=== PATIENT | female | born 1965 | race Caucasian/White ===

== ENCOUNTER 2019-01-04 15:57 | Emergency (ER) | payer SELFPAY ==
[~2019-01-04] VITALS: Ht 142.2 cm; Wt 65.8 kg
[~2019-01-04 15:57] MED LIST: CHOL200018 PO; CLON0.5T3 PO; DULO30CA PO; HYDR1TAB66 PO; LVT.05T PO; MILN50TA6 PO; MULT-1029 PO; PREG25CA PO; PRM25T PO; TOPI25TA2 PO; ZOLP10TA5 PO
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
--- OUTSIDE RECORDS SUMMARY | 2019-01-04 16:02 | XMS REPORT ---
Author Author Migration, Doctor Organization [facility] Address Unknown Phone Unavailable Care Team Providers Care Gas Dispenser Name Role Phone Migration, Doctor Unavailable Unavailable PROBLEMS Type Condition ICD9-CM Code TKK51-NC Code Onset Dates Condition Status SNOMED Code Problem Elevated ALT measurement R74.0 Active 495625290 Problem Mixed hyperlipidemia E78.2 Active 573538667 ALLERGIES No Information ENCOUNTERS Encounter Location Date Diagnosis [facility] [address] [address] Aug, Dysuria R30.0 and Urinary tract infection without hematuria, site unspecified N39.0 [place] [address] [address] Jul, Gastroenteritis K52.9 [facility] [address] [address] May, Acute pansinusitis, recurrence not specified J01.40 [facility] [place] [address] [address] Jan, Dysuria R30.0 and Acute cystitis without hematuria N30.00 [place] [address] [address] Aug, Mixed hyperlipidemia E78.2 and Elevated ALT measurement R74.0 [facility] [address] [address] Jul, Moderate episode of recurrent major depressive disorder F33.1 ; Screening cholesterol level Z13.220 ; Screening for diabetes mellitus Z13.1 ; Fibromyalgia syndrome M79.7 and Chronic fatigue R53.82 [facility] [address] [address] Jul, Moderate episode of recurrent major depressive disorder F33.1 ; Screening cholesterol level Z13.220 ; Screening for diabetes mellitus Z13.1 ; Overweight (BMI 25.0-29.9) E66.3 ; Fibromyalgia syndrome M79.7 ; Chronic fatigue R53.82 ; Other viral agents as the cause of diseases classified elsewhere B97.89 and Acute upper respiratory infection, unspecified J06.9 [place] [address] [place] [address] Jul, Panic disorder F41.0 ; Moderate episode of recurrent major depressive disorder F33.1 and Generalized anxiety disorder F41.1 [facility] [address] [place] [id number] [place] [address] Jul, Panic disorder F41.0 ; Moderate episode of recurrent major depressive disorder F33.1 ; Generalized anxiety disorder F41.1 ; Dysthymia F34.1 and Anxiety F41.9 [place] [id number] [place] [address] Jun, Panic disorder F41.0 ; Moderate episode of recurrent major depressive disorder F33.1 and Generalized anxiety disorder F41.1 [place] [address] [place] [id number] [place] [address] Jun, Anxiety F41.9 ; Acute stress reaction F43.0 ; Panic disorder [episodic paroxysmal anxiety] F41.[address] [facility] [address] [place] [address] Jun, Acute non-recurrent pansinusitis J01.40 [place] [address] [place] [id number] [place] [address] Nov, [place] [address] [place] [id number] [place] [address] Nov, [place] [address] [place] [id number] [place] [address] Jan, [place] [address] [place] [id number] [place] [address] December, [facility] [place] [facility] [address] [id number] [place] [address] 06 Nov, 2011 [facility] [place] [facility] [address] [id number] [place] [address] 05 Nov, 2011 [facility] [place] [facility] [address] [id number] [place] [address] Nov, [facility] [place] [facility] [address] [id number] [place] [address] 04 Nov, 2011 [facility] [place] [facility] [address] [id number] [place] [address] Nov, [facility] [place] [facility] [address] [id number] [place] [address] 31 Oct, 2011 [facility] [place] [facility] [address] [id number] [place] [address] 29 Oct, 2011 [facility] [place] [facility] [address] [id number] [place] [address] 28 Oct, 2011 [facility] [place] [facility] [address] [id number] [place] [address] 27 Oct, 2011 [facility] [place] [facility] [address] [id number] [place] [address] 26 Oct, 2011 [facility] [place] [facility] [address] [id number] [place] [address] 26 Oct, 2011 [facility] [place] [facility] [address] [id number] [place] [address] 22 Oct, 2011 [facility] [place] [facility] [address] [id number] [place] [address] 21 Oct, 2011 [facility] [place] [facility] [address] [id number] [place] [address] 19 Oct, 2011 [facility] [place] [facility] [address] [id number] [place] [address] 14 Oct, 2011 [facility] [place] [facility] [address] [id number] [place] [address] Oct, [facility] [place] [facility] [address] [id number] [place] [address] Oct, [facility] [place] [facility] [address] [id number] [place] [address] 29 Sep, 2011 [facility] [place] [facility] [address] [id number] [place] [address] Aug, [facility] [place] [facility] [address] [id number] [place] [address] 16 Aug, 2011 [facility] [place] [facility] [address] [id number] [place] [address] Aug, [facility] [place] [facility] [address] [id number] [place] [address] Aug, [facility] [place] [facility] [address] [id number] [place] [address] Jul, [facility] [place] [facility] [address] [id number] [place] [address] 16 Jul, 2011 [facility] [place] [facility] [address] [id number] [place] [address] 15 Jul, 2011 [facility] [place] [facility] [address] [id number] [place] [address] 13 Jul, 2011 [facility] [place] [facility] [address] [id number] [place] [address] 12 Jul, 2011 [facility] [place] [facility] [address] [id number] [address] 28 Jun, 2011 [facility] [place] [facility] [address] [id number] [place] [address] 28 Jun, 2011 [facility] [place] [facility] [address] [id number] [place] [address] 17 Jun, 2011 [facility] [place] [facility] [address] [id number] [place] [address] 14 Jun, 2011 [facility] [place] [facility] [address], [place] [address] Jun, [facility] [address], [place] [address] Mar, [facility] [address], [place] [address] Jan, [facility] [address], [place] [address] Sep, [facility] [address] [place] [address] Jul, [facility] [address] [place] [address] Jun, [facility] [address] [place] [address] May, [facility] [address] [place] [address] Sep, [facility] [address], [place] [address] Jun, [facility] [address] [place] [address] May, [facility] [address], [place] [address] May, [facility] [address], [place] [address] Feb, [facility] [address], [place] [address] Jan, [facility] [address], [place] [address] Oct, IMMUNIZATIONS No Known Immunizations SOCIAL HISTORY Never Assessed REASON FOR VISIT EMR-[facility] [place] PLAN OF CARE VITAL SIGNS MEDICATIONS No [...]
--- OUTSIDE RECORDS SUMMARY | 2019-01-04 16:02 | XMS REPORT ---
Author Author Migration, Doctor Organization [facility] Address Unknown Phone Unavailable Care Team Providers Care Hydrological Technical Officer Name Role Phone Migration, Doctor Unavailable Unavailable PROBLEMS Type Condition ICD9-CM Code JMS63-VM Code Onset Dates Condition Status SNOMED Code Problem Elevated ALT measurement R74.0 Active 068811931 Problem Mixed hyperlipidemia E78.2 Active 296444073 ALLERGIES No Information ENCOUNTERS Encounter Location Date Diagnosis [facility] IN [facility] [address] [address] Aug, Dysuria R30.0 and Urinary tract infection without hematuria, site unspecified N39.0 [place] [address] [address] Jul, Gastroenteritis K52.9 [facility] [address] [address] May, Acute pansinusitis, recurrence not specified J01.40 [facility] [place] [address] [address] Jan, Dysuria R30.0 and Acute cystitis without hematuria N30.00 [place] [address] [address] Aug, Mixed hyperlipidemia E78.2 and Elevated ALT measurement R74.0 [facility] [address] [address] Jul, Moderate episode of recurrent major depressive disorder F33.1 ; Screening cholesterol level Z13.220 ; Screening for diabetes mellitus Z13.1 ; Fibromyalgia syndrome M79.7 and Chronic fatigue R53.82 [facility] [address] [address] Jul, Moderate episode of recurrent major depressive disorder F33.1 ; Screening cholesterol level Z13.220 ; Screening for diabetes mellitus Z13.1 ; Overweight (BMI 25.0-29.9) E66.3 ; Fibromyalgia syndrome M79.7 ; Chronic fatigue R53.82 ; Other viral agents as the cause of diseases classified elsewhere B97.89 and Acute upper respiratory infection, unspecified J06.9 [place] [address] [place] [address] Jul, Panic disorder F41.0 ; Moderate episode of recurrent major depressive disorder F33.1 and Generalized anxiety disorder F41.1 [facility] [address] [place] [id number] [place] [address] Jul, Panic disorder F41.0 ; Moderate episode of recurrent major depressive disorder F33.1 ; Generalized anxiety disorder F41.1 ; Dysthymia F34.1 and Anxiety F41.9 [place] [id number] [place] [address] Jun, Panic disorder F41.0 ; Moderate episode of recurrent major depressive disorder F33.1 and Generalized anxiety disorder F41.1 [place] [address] [place] [id number] [place] [address] Jun, Anxiety F41.9 ; Acute stress reaction F43.0 ; Panic disorder [episodic paroxysmal anxiety] F41.0 and Dysthymia F34.1 [facility] [address] [place] [address] Jun, Acute non-recurrent pansinusitis J01.40 [place] [address] [place] [id number] [place] [address] Nov, [place] [address] [place] [id number] [place] [address] Nov, [place] [address] [place] [id number] [place] [address] Jan, [place] [address] [place] [id number] [place] [address] December, [facility] [place] [facility] [address] [id number] [place] [address] 06 Nov, 2011 [facility] [place] [facility] [address] [id number] [place] [address] 05 Nov, 2011 [facility] [place] [facility] [address] [id number] [place] [address] Nov, [facility] [place] [facility] [address] [id number] [place] [address] 04 Nov, 2011 [facility] [place] [facility] [address] [id number] [place] [address] Nov, [facility] [place] [facility] [address] [id number] [place] [address] 31 Oct, 2011 [facility] [place] [facility] [address] [id number] [place] [address] 29 Oct, 2011 [facility] [place] [facility] [address] [id number] [place] [address] 28 Oct, 2011 [facility] [place] [facility] [address] [id number] [place] [address] 27 Oct, 2011 [facility] [place] [facility] [address] [id number] [place] [address] 26 Oct, 2011 [facility] [place] [facility] [address] [id number] [place] [address] 26 Oct, 2011 [facility] [place] [facility] [address] [id number] [place] [address] 22 Oct, 2011 [facility] [place] [facility] [address] [id number] [place] [address] 21 Oct, 2011 [facility] [place] [facility] [address] [id number] [place] [address] 19 Oct, 2011 [facility] [place] [facility] [address] [id number] [place] [address] 14 Oct, 2011 [facility] [place] [facility] [address] [id number] [place] [address] Oct, [facility] [place] [facility] [address] [id number] [place] [address] Oct, [facility] [place] [facility] [address] [id number] [place] [address] 29 Sep, 2011 [facility] [place] [facility] [address] [id number] [place] [address] Aug, [facility] [place] [facility] [address] [id number] [place] [address] 16 Aug, 2011 [facility] [place] [facility] [address] [id number] [place] [address] Aug, [facility] [place] [facility] [address] [id number] [place] [address] Aug, [facility] [place] [facility] [address] [id number] [place] [address] Jul, [facility] [place] [facility] [address] [id number] [place] [address] 16 Jul, 2011 [facility] [place] [facility] [address] [id number] [place] [address] 15 Jul, 2011 [facility] [place] [facility] [address] [id number] [place] [address] 13 Jul, 2011 [facility] [place] [facility] [address] [id number] [place] [address] 12 Jul, 2011 [facility] [place] [facility] [address] [id number] [address] 28 Jun, 2011 [facility] [place] [facility] [address] [id number] [place] [address] 28 Jun, 2011 [facility] [place] [facility] [address] [id number] [place] [address] 17 Jun, 2011 [facility] [place] [facility] [address] [id number] [place] [address] 14 Jun, 2011 [facility] [place] [facility] [id number] [address] Jun, [facility] [id number] [address] Mar, [facility] [id number] [address] Jan, [facility] [id number] [address] Sep, [facility] [id number] [place] [address] Jul, [facility] [id number] [place] [address] Jun, [facility] [id number] [place] [address] May, [facility] [id number] [place] [address] Sep, [facility] [id number] [address] Jun, [facility] [id number] [place] [address] May, [facility] [id number] [address] May, [facility] [id number] [address] Feb, [facility] [id number] [address] Jan, [facility] [id number] [address] Oct, IMMUNIZATIONS No Known Immunizations SOCIAL HISTORY Never Assessed REASON FOR VISIT EMR-[facility] PLAN OF CARE VITAL SIGNS MEDICATIONS No [...]
--- OUTSIDE RECORDS SUMMARY | 2019-01-04 16:02 | XMS REPORT ---
Author Author Migration, Doctor Organization [facility] Address Unknown Phone Unavailable Care Team Providers Care Wafer Fab Technician Name Role Phone Migration, Doctor Unavailable Unavailable PROBLEMS Type Condition ICD9-CM Code IVD86-BA Code Onset Dates Condition Status SNOMED Code Problem Elevated ALT measurement R74.0 Active 097446065 Problem Mixed hyperlipidemia E78.2 Active [id number] ALLERGIES No Information ENCOUNTERS Encounter Location Date Diagnosis [facility] WALK IN [facility] [address] [address] Aug, Dysuria R30.0 and Urinary tract infection without hematuria, site unspecified N39.0 [place] [address] [address] Jul, Gastroenteritis K52.9 [facility] WALK IN [facility] [address] [address] 30 May, 2018 Acute pansinusitis, recurrence not specified J01.40 [facility] WALK IN [place] [address] [address] Jan, Dysuria R30.0 and Acute cystitis without hematuria N30.00 [place] [address] [address] Aug, Mixed hyperlipidemia E78.2 and Elevated ALT measurement R74.0 [facility] [address] [address] Jul, Moderate episode of recurrent major depressive disorder F33.1 ; Screening cholesterol level Z13.220 ; Screening for diabetes mellitus Z13.1 ; Fibromyalgia syndrome M79.7 and Chronic fatigue R53.82 [facility] [address] [address] Jul, Moderate episode of recurrent major depressive disorder F33.1 ; Screening cholesterol level Z13.220 ; Screening for diabetes mellitus Z13.1 ; Overweight (BMI 25.0-29.9) E66.3 ; Fibromyalgia syndrome M79.7 ; Chronic fatigue R53.82 ; Other viral agents as the cause of diseases classified elsewhere B97.89 and Acute upper respiratory infection, unspecified J06.9 [place] [id number] [place] [address] Jul, Panic disorder F41.0 ; Moderate episode of recurrent major depressive disorder F33.1 and Generalized anxiety disorder F41.1 [facility] [address] [place] [id number] [place] [address] Jul, Panic disorder F41.0 ; Moderate episode of recurrent major depressive disorder F33.1 ; Generalized anxiety disorder F41.1 ; Dysthymia F34.1 and Anxiety F41.9 [place] [id number] [place] [address] Jun, Panic disorder F41.0 ; Moderate episode of recurrent major depressive disorder F33.1 and Generalized anxiety disorder F41.1 [place] [address] [address] [place] [id number] [place] [address] Jun, Anxiety F41.9 ; Acute stress reaction F43.0 ; Panic disorder [episodic paroxysmal anxiety] F41.0 and Dysthymia F34.1 [facility] [address] [place] [address] Jun, Acute non-recurrent pansinusitis J01.40 [place] [address] [address] [place] [id number] [place] [address] Nov, [place] [address] [address] [place] [id number] [place] [address] Nov, [place] [address] [address] [place] [id number] [place] [address] Jan, [place] [address] [address] [place] [id number] [place] [address] December, [facility] [place] [facility] [address] [id number] [place] [address] 06 Nov, 2011 [facility] [place] [facility] [address] [id number] [place] [address] 05 Nov, 2011 [facility] [place] [facility] [address] [id number] [place] [address] Nov, [facility] [place] [facility] [address] [id number] [place] [address] 04 Nov, 2011 [facility] [place] [facility] [address] [id number] [place] [address] Nov, [facility] [place] [facility] [address] [id number] [place] [address] 31 Oct, 2011 [facility] [place] [facility] [address] [id number] [place] [address] 29 Oct, 2011 [facility] [place] [facility] [address] [id number] [place] [address] 28 Oct, 2011 [facility] [place] [facility] [address] [id number] [place] [address] 27 Oct, 2011 [facility] [place] [facility] [address] [id number] [place] [address] 26 Oct, 2011 [facility] [place] [facility] [address] [id number] [place] [address] 26 Oct, 2011 [facility] [place] [facility] [address] [id number] [place] [address] 22 Oct, 2011 [facility] [place] [facility] [address] [id number] [place] [address] 21 Oct, 2011 [facility] [place] [facility] [address] [id number] [place] [address] 19 Oct, 2011 [facility] [place] [facility] [address] [id number] [place] [address] 14 Oct, 2011 [facility] [place] [facility] [address] [id number] [place] [address] Oct, [facility] [place] [facility] [address] [id number] [place] [address] Oct, [facility] [place] [facility] [address] [id number] [place] [address] 29 Sep, 2011 [facility] [place] [facility] [address] [id number] [place] [address] Aug, [facility] [place] [facility] [address] [id number] [place] [address] 16 Aug, 2011 [facility] [place] [facility] [address] [id number] [place] [address] Aug, [facility] [place] [facility] [address] [id number] [place] [address] Aug, [facility] [place] [facility] [address] [id number] [place] [address] Jul, [facility] [place] [facility] [address] [id number] [place] [address] 16 Jul, 2011 [facility] [place] [facility] [address] [id number] [place] [address] 15 Jul, 2011 [facility] [place] [facility] [address] [id number] [place] [address] 13 Jul, 2011 [facility] [place] [facility] [address] [id number] [place] [address] 12 Jul, 2011 [facility] [place] [facility] [address] [id number] [address] 28 Jun, 2011 [facility] [place] [facility] [address] [id number] [place] [address] 28 Jun, 2011 [facility] [place] [facility] [address] [id number] [place] [address] 17 Jun, 2011 [facility] [place] [facility] [address] [id number] [place] [address] 14 Jun, 2011 [facility] [place] [facility] [address] [address] Jun, [facility] [address] [address] Mar, [facility] [address] [address] Jan, [facility] [address] [address] Sep, [facility] [id number] [place] [address] Jul, [facility] [id number] [place] [address] Jun, [facility] [id number] [place] [address] May, [facility] [id number] [place] [address] Sep, [facility] [address] [address] Jun, [facility] [id number] [place] [address] May, [facility] [address] [address] May, [facility] [address] [address] Feb, [facility] [address] [address] Jan, [facility] [address] [address] Oct, IMMUNIZATIONS No Known Immunizations SOCIAL HISTORY Never Assessed REASON FOR V[place]IT [place] [place] VITAL SIGNS MEDICATIONS No [...]
--- OUTSIDE RECORDS SUMMARY | 2019-01-04 16:02 | XMS REPORT ---
Author Author Migration, Doctor Organization [facility] Address Unknown Phone Unavailable Care Team Providers Care Librarian Specialist Name Role Phone Migration, Doctor Unavailable Unavailable PROBLEMS Type Condition ICD9-CM Code CCI63-JQ Code Onset Dates Condition Status SNOMED Code Problem Elevated ALT measurement R74.0 Active [id number] Problem Mixed hyperlipidemia E78.2 Active 087961999 ALLERGIES No Information ENCOUNTERS Encounter Location Date Diagnosis [facility] WALK IN [facility] [address] [address] Aug, Dysuria R30.0 and Urinary tract infection without hematuria, site unspecified N39.0 [place] [address] [address] Jul, Gastroenteritis K52.9 [facility] WALK IN [facility] [address] [address] 30 May, 2018 Acute pansinusitis, recurrence not specified J01.40 [facility] WALK IN [place] [address] [address] Jan, Dysuria R30.0 and Acute cystitis without hematuria N30.00 [place] [address] [address] Aug, Mixed hyperlipidemia E78.2 and Elevated ALT measurement R74.0 [facility] [address] [address] Jul, Moderate episode of recurrent major depressive disorder F33.1 ; Screening cholesterol level Z13.220 ; Screening for diabetes mellitus Z13.1 ; Fibromyalgia syndrome M79.7 and Chronic fatigue R53.82 [facility] [address] [address] Jul, Moderate episode of recurrent major depressive disorder F33.1 ; Screening cholesterol level Z13.220 ; Screening for diabetes mellitus Z13.1 ; Overweight (BMI 25.0-29.9) E66.3 ; Fibromyalgia syndrome M79.7 ; Chronic fatigue R53.82 ; Other viral agents as the cause of diseases classified elsewhere B97.89 and Acute upper respiratory infection, unspecified J06.9 [place] [id number] [place] [address] Jul, Panic disorder F41.0 ; Moderate episode of recurrent major depressive disorder F33.1 and Generalized anxiety disorder F41.1 [facility] [address] [place] [id number] [place] [address] Jul, Panic disorder F41.0 ; Moderate episode of recurrent major depressive disorder F33.1 ; Generalized anxiety disorder F41.1 ; Dysthymia F34.1 and Anxiety F41.9 [place] [id number] [place] [address] Jun, Panic disorder F41.0 ; Moderate episode of recurrent major depressive disorder F33.1 and Generalized anxiety disorder F41.1 [place] [address] [place] [id number] [place] [address] Jun, Anxiety F41.9 ; Acute stress reaction F43.0 ; Panic disorder [episodic paroxysmal anxiety] F41.0 and Dysthymia F34.1 [facility] [id number] [place] [address] Jun, Acute non-recurrent pansinusitis J01.40 [place] [address] [place] [id number] [place] [address] Nov, [place] [address] [place] [id number] [place] [address] Nov, [place] [address] [place] [id number] [place] [address] Jan, [place] [address] [place] [id number] [place] [address] December, [facility] [place] [facility] [address] [id number] [place] [address] 06 Nov, 2011 [facility] [place] [facility] [address] [id number] [place] [address] 05 Nov, 2011 [facility] [place] [facility] [address] [id number] [place] [address] Nov, [facility] [place] [facility] [address] [id number] [place] [address] 04 Nov, 2011 [facility] [place] [facility] [address] [id number] [place] [address] Nov, [facility] [place] [facility] [address] [id number] [place] [address] 31 Oct, 2011 [facility] [place] [facility] [address] [id number] [place] [address] 29 Oct, 2011 [facility] [place] [facility] [address] [id number] [place] [address] 28 Oct, 2011 [facility] [place] [facility] [address] [id number] [place] [address] 27 Oct, 2011 [facility] [place] [facility] [address] [id number] [place] [address] 26 Oct, 2011 [facility] [place] [facility] [address] [id number] [place] [address] 26 Oct, 2011 [facility] [place] [facility] [address] [id number] [place] [address] 22 Oct, 2011 [facility] [place] [facility] [address] [id number] [place] [address] 21 Oct, 2011 [facility] [place] [facility] [address] [id number] [place] [address] 19 Oct, 2011 [facility] [place] [facility] [address] [id number] [place] [address] 14 Oct, 2011 [facility] [place] [facility] [address] [id number] [place] [address] Oct, [facility] [place] [facility] [address] [id number] [place] [address] Oct, [facility] [place] [facility] [address] [id number] [place] [address] 29 Sep, 2011 [facility] [place] [facility] [address] [id number] [place] [address] Aug, [facility] [place] [facility] [address] [id number] [place] [address] 16 Aug, 2011 [facility] [place] [facility] [address] [id number] [place] [address] Aug, [facility] [place] [facility] [address] [id number] [place] [address] Aug, [facility] [place] [facility] [address] [id number] [place] [address] Jul, [facility] [place] [facility] [address] [id number] [place] [address] 16 Jul, 2011 [facility] [place] [facility] [address] [id number] [place] [address] 15 Jul, 2011 [facility] [place] [facility] [address] [id number] [place] [address] 13 Jul, 2011 [facility] [place] [facility] [address] [id number] [place] [address] 12 Jul, 2011 [facility] [place] [facility] [address] [id number] [address] 28 Jun, 2011 [facility] [place] [facility] [address] [id number] [place] [address] 28 Jun, 2011 [facility] [place] [facility] [address] [id number] [place] [address] 17 Jun, 2011 [facility] [place] [facility] [address] [id number] [place] [address] 14 Jun, 2011 [facility] [place] [facility] [address] [address] Jun, [facility] [address] [address] Mar, [facility] [address] [address] Jan, [facility] [address] [address] Sep, [facility] [address] [address] Jul, [facility] [id number] [place] [address] Jun, [facility] [address] [address] May, [facility] [id number] [place] [address] Sep, [facility] [address] [address] Jun, [facility] [id number] [place] [address] May, [facility] [address] [address] May, [facility] [address] [address] Feb, [facility] [address] [address] Jan, [facility] [address] [address] Oct, IMMUNIZATIONS No Known Immunizations SOCIAL HISTORY Never Assessed REASON [place] VISIT [place] [place] VITAL SIGNS MEDICATIONS Medication Instructions Dosage Frequency Start Date End Date Duration Status Topamax 25 mg 1 tablet by Oral route 2 times per day for 30 day(s) Oct, Active Ambien 10 mg 1 tablet by Oral route 1 time per dayPRN Oct, Active Clonazepam 1 mg 1 tablet by Oral route 2 times per day Oct, Active levothyroxine 50 mcg 1 tablet by Oral route 1 time per day Oct, Active Savella 25 mg 1-2 Tablet by Oral route 2 times per dayas directed Oct, Active RESULTS No Results PROCEDURES No Known procedures [...]
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
--- OUTSIDE RECORDS SUMMARY | 2019-01-04 16:03 | XMS REPORT ---
Author Author JAVON MAURICIO Organization [facility] Address [address] [place] [address] Care Team Providers Care Device Sales Consultant Name Role Phone JOSEPHLISA MAURICIO Unavailable PROBLEMS Type Condition ICD9-CM Code VLL54-RE Code Onset Dates Condition Status SNOMED Code Problem Elevated ALT measurement R74.0 Active 894726521 Problem Chronic fatigue R53.82 Active 82841491 Problem Mixed hyperlipidemia E78.2 Active 076629832 Problem Generalized anxiety disorder F41.1 Active 18761939 Problem Panic disorder F41.0 Active 629132383 Problem Dysthymia F34.1 Active 75636443 Problem Fibromyalgia syndrome M79.7 Active 853092531 Problem Moderate episode of recurrent major depressive disorder F33.1 Active 859348795 Problem Acute stress reaction F43.0 Active 70313756 ALLERGIES Substance Reaction Event Type Date Status Neurontin doesn't remember Drug Allergy Jun, Active ENCOUNTERS Encounter Location Date Diagnosis [facility] [id number] [place] [address] Aug, Mixed hyperlipidemia E78.2 and Elevated ALT measurement R74.0 [facility] [address] [place] [address] Jul, Moderate episode of recurrent major depressive disorder F33.1 ; Screening cholesterol level Z13.220 ; Screening for diabetes mellitus Z13.1 ; Fibromyalgia syndrome M79.7 and Chronic fatigue R53.82 [facility] [id number] [place] [address] Jul, Moderate episode of recurrent major depressive disorder F33.1 ; Screening cholesterol level Z13.220 ; Screening for diabetes mellitus Z13.1 ; Overweight (BMI 25.0-29.9) E66.3 ; Fibromyalgia syndrome M79.7 ; Chronic fatigue R53.82 ; Other viral agents as the cause of diseases classified elsewhere B97.89 and Acute upper respiratory infection, unspecified J06.9 [facility] [id number] [place] [address] Jul, Panic disorder F41.0 ; Moderate episode of recurrent major depressive disorder F33.1 and Generalized anxiety disorder F41.1 [facility] [id number] [place] [address] Jul, Panic disorder F41.0 ; Moderate episode of recurrent major depressive disorder F33.1 ; Generalized anxiety disorder F41.1 ; Dysthymia F34.1 and Anxiety F41.9 [address] [place] [address] [address] Jun, Panic disorder F41.0 ; Moderate episode of recurrent major depressive disorder F33.1 and Generalized anxiety disorder F41.1 [address] [id number] [place] [address] Jun, Anxiety F41.9 ; Acute stress reaction F43.0 ; Panic disorder [episodic paroxysmal anxiety] F41.0 and Dysthymia F34.1 [facility] [id number] [place] [address] Jun, Acute non-recurrent pansinusitis J01.40 [facility] [id number] [place] [address] Nov, [facility] [id number] [place] [address] Nov, [facility] [id number] [place] [address] Jan, [facility] [address] [address] December, [facility] [id number] [place] [address] Nov, [facility] [address] [address] 05 Nov, 2011 [facility] [place] [facility] [address] [id number] [place] [address] Nov, [facility] [place] [facility] [address] [id number] [place] [address] 04 Nov, 2011 [facility] [place] [facility] [address] [id number] [place] [address] Nov, [facility] [place] [facility] [address] [id number] [place] [address] 31 Oct, 2011 [facility] [place] [facility] [address] [id number] [place] [address] 29 Oct, 2011 [facility] [place] [facility] [address] [id number] [place] [address] 28 Oct, 2011 [facility] [place] [facility] [address] [id number] [place] [address] 27 Oct, 2011 [facility] [place] [facility] [address] [id number] [place] [address] 26 Oct, 2011 [facility] [place] [facility] [address] [id number] [place] [address] 26 Oct, 2011 [facility] [place] [facility] [address] [id number] [place] [address] 22 Oct, 2011 [facility] [place] [facility] [address] [id number] [place] [address] 21 Oct, 2011 [facility] [place] [facility] [address] [id number] [place] [address] 19 Oct, 2011 [facility] [place] [facility] [address] [id number] [place] [address] 14 Oct, 2011 [facility] [place] [facility] [address] [id number] [place] [address] 07 Oct, 2011 [facility] [place] [facility] [address] [id number] [place] [address] 05 Oct, 2011 [facility] [place] [facility] [address] [id number] [place] [address] 29 Sep, 2011 [facility] [address] [id number] [place] [address] Aug, [facility] [address] [id number] [place] [address] 16 Aug, 2011 [facility] [address] [id number] [place] [address] Aug, [facility] [address] [id number] [place] [address] Aug, [facility] [address] [id number] [place] [address] Jul, [facility] [address] [id number] [place] [address] 16 Jul, 2011 [facility] [address] [id number] [place] [address] 15 Jul, 2011 [facility] [address] [id number] [place] [address] Jul, [facility] [address] [id number] [place] [address] Jul, [facility] [address] [id number] [place] [address] Jun, [facility] [address] [id number] [place] [address] 28 Jun, 2011 [facility] [address] [id number] [place] [address] 17 Jun, 2011 [facility] [address] [id number] [place] [address] 14 Jun, 2011 [facility] [address] [id number] [place] [address] 02 Jun, 2011 [facility] [address] [id number] [place] [address] Mar, [facility] [address] [place] [address] Jan, [facility] [address] [place] [address] Sep, [facility] [address] [place] [address] Jul, [facility] [address] [place] [address] Jun, [facility] [address] [place] [address] May, [facility] [address] [address] Sep, [facility] [address] [address] Jun, [facility] [address] [place] [address] May, [facility] [address], [place] [address] May, [facility] [address] [place] [address] Feb, [facility] [address], [place] [address] Jan, [facility] [id number] [address] Oct, IMMUNIZATIONS No Known Immunizations SOCIAL HISTORY Never Assessed REASON FOR VISIT BH intake, contract PLAN OF CARE Activity Details Follow Up 4 Weeks Reason: VITAL SIGNS Height 58 in 2017-07-11 Weight 145.1 lbs 2017-07-11 Heart Rate 78 bpm 2017-07-11 Respiratory Rate 20 2017-07-11 BMI 30.32 kg/m2 2017-07-11 Blood pressure systolic 128 mmHg 2017-07-11 Blood pressure diastolic 80 mmHg 2017-07-11 MEDICATIONS Medication Instructions Dosage Frequency Start Date End Date Duration Status Clonazepam 1 mg 1 tablet by Oral route 2 times per day Oct, Not-Taking levothyroxine 50 mcg 1 tablet by Oral route 1 time per day Oct, Not-Taking Savella 25 mg 1-2 Tablet by Oral route 2 times per dayas directed Oct, Not-Taking Ambien 10 mg 1 tablet by Oral route 1 time per dayPRN Oct, Not-Taking Trazodone HCl 50 MG Orally at night as needed for sleep 1- 2 tabs Jun, 30 day(s) Active Cymbalta 60 MG Orally every morning 1 capsule Jun, 30 day(s) Active Cymbalta 30 MG Orally daily 1 cap every morning for one week, then take 2 caps every morning for one week, then take 30mg +60mg caps every monring 24h Jun, 30 day(s) Active Topamax 25 mg 1 tablet by Oral route 2 times per day for 30 day(s) Oct, Not-Taking RESULTS No Results PROCEDURES No Known procedures [...]
--- OUTSIDE RECORDS SUMMARY | 2019-01-04 16:03 | XMS REPORT ---
Author Author BRENNERVIC Dumont Organization [facility] Address [address] [place] [address] Care Team Providers Care Executive Wellness Programs Director Name Role Phone VIC BRENNER Unavailable PROBLEMS Type Condition ICD9-CM Code INI24-LE Code Onset Dates Condition Status SNOMED Code Problem Elevated ALT measurement R74.0 Active 649489265 Problem Chronic fatigue R53.82 Active 00812806 Problem Mixed hyperlipidemia E78.2 Active 856043311 Problem Generalized anxiety disorder F41.1 Active 09629013 Problem Panic disorder F41.0 Active 381152014 Problem Dysthymia F34.1 Active 93229847 Problem Fibromyalgia syndrome M79.7 Active 019356164 Problem Moderate episode of recurrent major depressive disorder F33.1 Active 601041748 Problem Acute stress reaction F43.0 Active 32002871 ALLERGIES No Information ENCOUNTERS Encounter Location Date Diagnosis [facility] [address] [address] Feb, [facility] [address] [address] Jan, Dysuria R30.0 and Acute cystitis without hematuria N30.00 [facility] [address] [address] Aug, Mixed hyperlipidemia E78.2 and Elevated ALT measurement R74.0 [facility] [address] [address] Jul, Moderate episode of recurrent major depressive disorder F33.1 ; Screening cholesterol level Z13.220 ; Screening for diabetes mellitus Z13.1 ; Fibromyalgia syndrome M79.7 and Chronic fatigue R53.82 [facility] [id number] [place] [address] Jul, Moderate episode of recurrent major depressive disorder F33.1 ; Screening cholesterol level Z13.220 ; Screening for diabetes mellitus Z13.1 ; Overweight (BMI 25.0-29.9) E66.3 ; Fibromyalgia syndrome M79.7 ; Chronic fatigue R53.82 ; Other viral agents as the cause of diseases classified elsewhere B97.89 and Acute upper respiratory infection, unspecified J06.9 [facility] [id number] [place] [address] Jul, Panic disorder F41.0 ; Moderate episode of recurrent major depressive disorder F33.1 and Generalized anxiety disorder F41.1 [id number] [place] [address] Jul, Panic disorder F41.0 ; Moderate episode of recurrent major depressive disorder F33.1 ; Generalized anxiety disorder F41.1 ; Dysthymia F34.1 and Anxiety F41.[address] [address] Jun, Panic disorder F41.0 ; Moderate episode of recurrent major depressive disorder F33.1 and Generalized anxiety disorder F41.[address] [address] Jun, Anxiety F41.9 ; Acute stress reaction F43.0 ; Panic disorder [episodic paroxysmal anxiety] F41.0 and Dysthymia F34.1 [facility] [id number] [place] [address] Jun, Acute non-recurrent pansinusitis J01.40 [id number] [place] [address] Nov, [address] [address] Nov, [facility] [address] [place] [id number] [place] [address] Jan, [address] [address] December, [facility] [place] [facility] [address] [id number] [place] [address] Nov, [facility] [place] [facility] [address] [id number] [place] [address] Nov, [facility] [place] [facility] [address] [id number] [place] [address] Nov, [facility] [place] [facility] [address] [id number] [place] [address] Nov, [facility] [place] [facility] [address] [id number] [place] [address] Nov, [facility] [place] [facility] [address] [id number] [place] [address] 31 Oct, 2011 [facility] [place] [facility] [address] [id number] [place] [address] 29 Oct, 2011 [facility] [place] [facility] [address] [id number] [place] [address] 28 Oct, 2011 [facility] [place] [facility] [address] [id number] [place] [address] 27 Oct, 2011 [facility] [place] [facility] [address] [id number] [place] [address] 26 Oct, 2011 [facility] [place] [facility] [address] [id number] [place] [address] 26 Oct, 2011 [facility] [place] [facility] [address] [id number] [place] [address] 22 Oct, 2011 [facility] [place] [facility] [address] [id number] [place] [address] 21 Oct, 2011 [facility] [place] [facility] [address] [id number] [place] [address] 19 Oct, 2011 [facility] [place] [facility] [address] [id number] [place] [address] 14 Oct, 2011 [facility] [place] [facility] [address] [id number] [place] [address] 07 Oct, 2011 [facility] [address] [id number] [place] [address] 05 Oct, 2011 [facility] [place] [facility] [address] [id number] [place] [address] 29 Sep, 2011 [facility] [place] [facility] [address] [id number] [place] [address] 23 Aug, 2011 [facility] [place] [facility] [address] [id number] [place] [address] 16 Aug, 2011 [facility] [place] [facility] [address] [id number] [place] [address] Aug, [facility] [place] [facility] [address] [id number] [place] [address] Aug, [facility] [address] [id number] [place] [address] 23 Jul, 2011 [facility] [place] [facility] [address] [id number] [place] [address] 16 Jul, 2011 [facility] [place] [facility] [address] [id number] [place] [address] 15 Jul, 2011 [facility] [place] [facility] [address] [id number] [place] [address] 13 Jul, 2011 [facility] [place] [facility] [address] [id number] [place] [address] 12 Jul, 2011 [facility] [place] [facility] [address] [id number] [place] [address] 28 Jun, 2011 [facility] [place] [facility] [address] [id number] [place] [address] 28 Jun, 2011 [facility] [place] [facility] [address] [id number] [place] [address] 17 Jun, 2011 [facility] [place] [facility] [address] [id number] [place] [address] 14 Jun, 2011 [facility] [address] [address] Jun, [facility] [address] [address] Mar, [facility] [address] [address] Jan, [facility] [id number] [place] [address] Sep, [facility] [id number] [address] Jul, [facility] [id number] [place] [address] Jun, [facility] [address] [address] May, [facility] [address] [place] [address] Sep, [facility] [address] [address] Jun, [facility] [address] [address] May, [facility] [address] [address] May, [facility] [address] [address] Feb, [facility] [id number] [address] Jan, [facility] [address] [place] [address] Oct, IMMUNIZATIONS No Known Immunizations SOCIAL HISTORY Never Assessed REASON FOR VISIT Lab orders PLAN OF CARE VITAL SIGNS MEDICATIONS Unknown Medications RESULTS No Results PROCEDURES No Known [...]
--- OUTSIDE RECORDS SUMMARY | 2019-01-04 16:03 | XMS REPORT ---
Author Author JAVON MAURICIO Organization [facility] Address [address] [place] [address] Care Team Providers Care Rewrite Editor Name Role Phone JOSEPHLISA MAURICIO Unavailable PROBLEMS Type Condition ICD9-CM Code CZM47-JT Code Onset Dates Condition Status SNOMED Code Problem Elevated ALT measurement R74.0 Active 783162295 Problem Chronic fatigue R53.82 Active 72332188 Problem Mixed hyperlipidemia E78.2 Active 843578151 Problem Generalized anxiety disorder F41.1 Active 35834878 Problem Panic disorder F41.0 Active 743328778 Problem Dysthymia F34.1 Active 30493100 Problem Fibromyalgia syndrome M79.7 Active 267173916 Problem Moderate episode of recurrent major depressive disorder F33.1 Active 831159118 Problem Acute stress reaction F43.0 Active 07853972 ALLERGIES No Information ENCOUNTERS Encounter Location Date Diagnosis [facility] [address] [place] [address] Aug, Mixed hyperlipidemia E78.2 and Elevated ALT measurement R74.0 [facility] [address] [place] [address] Jul, Moderate episode of recurrent major depressive disorder F33.1 ; Screening cholesterol level Z13.220 ; Screening for diabetes mellitus Z13.1 ; Fibromyalgia syndrome M79.7 and Chronic fatigue R53.82 [facility] [id number] [place] [address] Jul, Moderate episode of recurrent major depressive disorder F33.1 ; Screening cholesterol level Z13.220 ; Screening for diabetes mellitus Z13.1 ; Overweight (BMI 25.0-29.9) E66.3 ; Fibromyalgia syndrome M79.7 ; Chronic fatigue R53.82 ; Other viral agents as the cause of diseases classified elsewhere B97.89 and Acute upper respiratory infection, unspecified J06.9 [facility] [address] [address] Jul, Panic disorder F41.0 ; Moderate episode of recurrent major depressive disorder F33.1 and Generalized anxiety disorder F41.1 [facility] [id number] [address] Jul, Panic disorder F41.0 ; Moderate episode of recurrent major depressive disorder F33.1 ; Generalized anxiety disorder F41.1 ; Dysthymia F34.1 and Anxiety F41.9 [facility] [id number] [place] [address] Jun, Panic disorder F41.0 ; Moderate episode of recurrent major depressive disorder F33.1 and Generalized anxiety disorder F41.1 [facility] [id number] [place] [address] Jun, Anxiety F41.9 ; Acute stress reaction F43.0 ; Panic disorder [episodic paroxysmal anxiety] F41.0 and Dysthymia F34.1 [facility] [address] [place] [address] Jun, Acute non-recurrent pansinusitis J01.40 [facility] [id number] [place] [address] Nov, [facility] [address] [address] Nov, [facility] [id number] [place] [address] Jan, [facility] [id number] [place] [address] December, [facility] [id number] [place] [address] Nov, [facility] [address] [address] Nov, [facility] [address] [place] [address] 04 Nov, 2011 [facility] [address] [id number] [place] [address] 04 Nov, 2011 [facility] [address] [id number] [place] [address] Nov, [facility] [address] [id number] [place] [address] 31 Oct, 2011 [facility] [address] [id number] [place] [address] 29 Oct, 2011 [facility] [address] [id number] [place] [address] 28 Oct, 2011 [facility] [address] [id number] [place] [address] 27 Oct, 2011 [facility] [address] [id number] [place] [address] 26 Oct, 2011 [facility] [address] [id number] [place] [address] 26 Oct, 2011 [facility] [address] [id number] [place] [address] 22 Oct, 2011 [facility] [address] [id number] [place] [address] 21 Oct, 2011 [facility] [address] [id number] [place] [address] 19 Oct, 2011 [facility] [address] [id number] [place] [address] 14 Oct, 2011 [facility] [place] [facility] [address] [id number] [place] [address] 07 Oct, 2011 [facility] [place] [facility] [address] [id number] [place] [address] 05 Oct, 2011 [facility] [address] [id number] [place] [address] 29 Sep, 2011 [facility] [place] [facility] [address] [id number] [place] [address] Aug, [facility] [place] [facility] [address] [id number] [place] [address] Aug, [facility] [place] [facility] [address] [id number] [place] [address] Aug, [facility] [place] [facility] [address] [id number] [place] [address] Aug, [facility] [place] [facility] [address] [id number] [place] [address] Jul, [facility] [place] [facility] [address] [id number] [place] [address] 16 Jul, 2011 [facility] [place] [facility] [address] [id number] [place] [address] 15 Jul, 2011 [facility] [place] [facility] [address] [id number] [place] [address] Jul, [facility] [place] [facility] [address] [id number] [place] [address] Jul, [facility] [place] [facility] [address] [id number] [place] [address] Jun, [facility] [place] [facility] [address] [id number] [place] [address] 28 Jun, 2011 [facility] [place] [facility] [address] [id number] [place] [address] 17 Jun, 2011 [facility] [place] [facility] [address] [id number] [place] [address] 14 Jun, 2011 [facility] [place] [facility] [address] [id number] [place] [address] 02 Jun, 2011 [facility] [place] [facility] [address] [id number] [place] [address] 15 Mar, 2011 [facility] [place] [facility] [address] [id number] [address] Jan, [facility] [address] [address] Sep, [facility] [address] [address] Jul, [facility] [address] [address] Jun, [facility] [address] [address] May, [facility] [address] [address] Sep, [facility] [address] [address] Jun, [facility] [address] [address] May, [facility] [address] [address] May, [facility] [address] [address] Feb, [facility] [address] [address] Jan, [facility] [id number] [address] Oct, IMMUNIZATIONS No Known Immunizations SOCIAL HISTORY Never Assessed REASON FOR VISIT f/u PLAN OF CARE Activity Details Follow Up 4 Weeks Reason: VITAL SIGNS Height 58 in 2017-08-09 Weight 140.8 lbs 2017-08-09 BMI 29.42 kg/m2 2017-08-09 MEDICATIONS Medication Instructions Dosage Frequency Start Date End Date Duration Status Ambien 10 mg 1 tablet by Oral route 1 time per dayPRN Oct, Not-Taking Topamax 25 mg 1 tablet by Oral route 2 times per day for 30 day(s) Oct, Not-Taking Clonazepam 1 mg 1 tablet by Oral route 2 times per day Oct, Not-Taking Cymbalta 30 MG Orally daily 1 cap every morning for one week, then take 2 caps every morning for one week, then take 30mg 60mg caps every monring 24h Jun, 30 day(s) Active levothyroxine 50 mcg 1 tablet by Oral route 1 time per day Oct, Active Trazodone HCl 50 MG Orally at night as needed for sleep 1- 2 tabs Jun, 30 day(s) Not-Taking Savella 25 mg 1-2 Tablet by Oral route 2 times per dayas directed Oct, Not-Taking Cymbalta 60 MG Orally every morning 2 capsule Jun, 30 days Active RESULTS No Results PROCEDURES No Known [...]
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
--- OUTSIDE RECORDS SUMMARY | 2019-01-04 16:04 | XMS REPORT ---
Author Author BRENNERVCI Dumont Organization 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 Name Role Phone VIC BRENNER Unavailable PROBLEMS Type Condition ICD9-CM Code [id number] Code Onset Dates Condition Status SNOMED Code Problem Elevated ALT measurement R74.0 Active 824891964 Problem Chronic fatigue R53.82 Active 04218979 Problem Mixed hyperlipidemia E78.2 Active 690173480 Problem Generalized anxiety disorder F41.1 Active 16808703 Problem Panic disorder F41.0 Active 212719376 Problem Dysthymia F34.1 Active 20274868 Problem Fibromyalgia syndrome M79.7 Active 617126231 Problem Moderate episode of recurrent major depressive disorder F33.1 Active 333864520 Problem Acute stress reaction F43.0 Active 94295646 ALLERGIES Substance Reaction Event Type Date Status Neurontin doesn't remember Drug Allergy Jul, Active ENCOUNTERS Encounter Location Date Diagnosis [facility] [address] [place] [address] Aug, Mixed hyperlipidemia E78.2 and Elevated ALT measurement R74.0 [facility] [address] [place] [address] Jul, Moderate episode of recurrent major depressive disorder F33.1 ; Screening cholesterol level Z13.220 ; Screening for diabetes mellitus Z13.1 ; Fibromyalgia syndrome M79.7 and Chronic fatigue R53.82 [facility] [id number] [place] [address] Jul, Moderate episode of recurrent major depressive disorder F33.1 ; Screening cholesterol level Z13.220 ; Screening for diabetes mellitus Z13.1 ; Overweight (BMI 25.0-29.9) E66.3 ; Fibromyalgia syndrome M79.7 ; Chronic fatigue R53.82 ; Other viral agents as the cause of diseases classified elsewhere B97.89 and Acute upper respiratory infection, unspecified J06.9 [facility] [address] [place] [address] Jul, Panic disorder F41.0 ; Moderate episode of recurrent major depressive disorder F33.1 and Generalized anxiety disorder F41.1 [facility] [id number] [place] [address] Jul, Panic disorder F41.0 ; Moderate episode of recurrent major depressive disorder F33.1 ; Generalized anxiety disorder F41.1 ; Dysthymia F34.1 and Anxiety F41.9 [place] [id number] [place] [address] Jun, Panic disorder F41.0 ; Moderate episode of recurrent major depressive disorder F33.1 and Generalized anxiety disorder F41.1 [place] [id number] [place] [address] Jun, Anxiety F41.9 ; Acute stress reaction F43.0 ; Panic disorder [episodic paroxysmal anxiety] F41.0 and Dysthymia F34.1 [facility] [id number] [place] [address] Jun, Acute non-recurrent pansinusitis J01.40 [facility] [id number] [place] [address] Nov, [facility] [id number] [place] [address] Nov, [facility] [id number] [place] [address] Jan, [facility] [id number] [place] [address] December, [facility] [id number] [place] [address] Nov, [facility] [id number] [place] [address] 05 Nov, 2011 [facility] [place] [facility] [address] [id number] [place] [address] Nov, [facility] [place] [facility] [address] [id number] [place] [address] 04 Nov, 2011 [facility] [place] [facility] [address] [id number] [place] [address] Nov, [facility] [place] [facility] [address] [id number] [place] [address] 31 Oct, 2011 [facility] [place] [facility] [address] [id number] [place] [address] 29 Oct, 2011 [facility] [place] [facility] [address] [id number] [place] [address] 28 Oct, 2011 [facility] [place] [facility] [address] [id number] [place] [address] 27 Oct, 2011 [facility] [place] [facility] [address] [id number] [place] [address] 26 Oct, 2011 [facility] [place] [facility] [address] [id number] [place] [address] 26 Oct, 2011 [facility] [place] [facility] [address] [id number] [place] [address] 22 Oct, 2011 [facility] [place] [facility] [address] [id number] [place] [address] 21 Oct, 2011 [facility] [place] [facility] [address] [id number] [place] [address] 19 Oct, 2011 [facility] [place] [facility] [address] [id number] [place] [address] 14 Oct, 2011 [facility] [place] [facility] [address] [id number] [place] [address] 07 Oct, 2011 [facility] [place] [facility] [address] [id number] [place] [address] 05 Oct, 2011 [facility] [place] [facility] [address] [id number] [place] [address] 29 Sep, 2011 [facility] [address] [id number] [place] [address] Aug, [facility] [place] [facility] [address] [id number] [place] [address] 16 Aug, 2011 [facility] [address] [id number] [place] [address] Aug, [facility] [place] [facility] [address] [id number] [place] [address] Aug, [facility] [address] [id number] [place] [address] Jul, [facility] [place] [facility] [address] [id number] [place] [address] 16 Jul, 2011 [facility] [address] [id number] [place] [address] 15 Jul, 2011 [facility] [place] [facility] [address] [id number] [place] [address] Jul, [facility] [place] [facility] [address] [id number] [place] [address] Jul, [facility] [place] [facility] [address] [id number] [place] [address] Jun, [facility] [place] [facility] [address] [id number] [place] [address] 28 Jun, 2011 [facility] [place] [facility] [address] [id number] [place] [address] 17 Jun, 2011 [facility] [place] [facility] [address] [id number] [place] [address] 14 Jun, 2011 [facility] [place] [facility] [address] [id number] [place] [address] 02 Jun, 2011 [facility] [place] [facility] [address] [id number] [place] [address] Mar, [facility] [address] [address] Jan, [facility] [address] [address] Sep, [facility] [address] [address] Jul, [facility] [address] [address] Jun, [facility] [address] [address] May, [facility] [address] [address] Sep, [facility] [address] [address] Jun, [facility] [address] [address] May, [facility] [address] [address] May, [facility] [id number] [address] Feb, [facility] [id number] [address] Jan, [facility] [id number] [address] Oct, IMMUNIZATIONS No Known Immunizations SOCIAL HISTORY Never Assessed REASON FOR VISIT Establish Care: states has fibromyalgia, chronic fatigue, depression and anxiety issues ongoing, Congestion started 1 week ago, denies fever, denies body aches, slight sore throat korina bello PLAN OF CARE Activity Details Follow Up 6 Months, prn Reason: VITAL SIGNS Height 58 in 2017-08-16 Weight 139.9 lbs 2017-08-16 Temperature 97.8 degrees Fahrenheit 2017-08-16 Heart Rate 84 bpm 2017-08-16 Respiratory Rate 20 2017-08-16 BMI 29.24 kg/m2 2017-08-16 Blood pressure systolic 122 mmHg 2017-08-16 Blood pressure diastolic 78 mmHg 2017-08-16 MEDICATIONS Medication Instructions Dosage Frequency Start Date End Date Duration Status Cymbalta 60 MG Orally every morning 2 capsule Jun, 30 days Active Cymbalta 30 MG Orally daily 1 cap every morning for one week, then take 2 caps every morning for one week, then take 30mg 60mg caps every monring 24h Jun, 30 day(s) Active RESULTS No Results PROCEDURES No [...]
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
--- NOTE | 2019-01-04 16:30 | ED Back Pain ---
General Chief Complaint: Back Problems Stated Complaint: LOWER BACK PAIN Nursing Triage Note: PT C/O LOWER BACK PAIN. PT DENIES INJURY TO BACK. PT DENIESS LOSS OF BOWEL OR BLADDER. PT DENIES SADDLE NUMBNESS. PT DENIES NUMBNESS OR TINGLING IN EXTREMETIES. PT DENIES WEAKNESS. PT STATES MOVING SHOOTS PAIN EVERYWHERE. PT USED WHEEL CHAIR TO TRIAGE AREA. Nursing Sepsis Screen: No Definite Risk Source of Information: Patient Exam Limitations: No Limitations History of Present Illness Date Seen by Provider: January 04, 2019 Time Seen by Provider: 16:30 Initial Comments 53 yo female patient presents to the ED with low back pain x 2 days. patient denies known injury. patient denies bowel incontinence, bladder incontinence, saddle numbness, or lower extremity weakness. pain does radiate down the left buttock and proximal thigh. Denies using OTC meds for pain. Location: Paraspinous Muscles Timing/Duration: 1-2 Days, Constant Pain/Injury Location: Back Radiation: Buttocks (left), Upper Legs (left ) Method of Injury: Unknown Modifying Factors: Worse With Movement Associated Symptoms: muscle spasms; No fever, No weakness, No numbness in legs/feet, No tingling in legs/feet, No sensory/motor loss; lower back pain; No loss of bladder control, No loss of bowel control Allergies and Home Medications Allergies Coded Allergies: gabapentin (Unverified Allergy, Unknown, 11/12/11) Home Medications Cholecalciferol (Vitamin D3) 2,000 Unit Capsule, 1,000 UNIT PO BID, (Reported) Clonazepam 0.5 Mg Tablet, 1 EACH PO BID, (Reported) Hydrocodone Bit/Acetaminophen 1 Each Tablet, 1 EACH PO Q6H, (Reported) Levothyroxine Sodium 50 Mcg Tablet, 1 EACH PO DAILY, (Reported) Milnacipran Hcl 50 Mg Tablet, 50 MG PO BID, (Reported) Mu-Vits-Min Th/Lycopene/Lutein 1 Each Tablet, 1 EACH PO DAILY, (Reported) Orphenadrine Citrate 100 Mg Tablet.er, 100 MG PO BID PRN for SPASMS Prescribed by: MADI GABRIEL on 01/04/191756 Prednisone 20 Mg Tab, 40 MG PO DAILY Prescribed by: MADI GABRIEL on 01/04/191756 Promethazine Hcl 25 Mg Tablet, 1 TAB PO QID, (Reported) Topiramate 25 Mg Tablet, 25 MG PO BID, (Reported) Zolpidem Tartrate 10 Mg Tablet, 10 MG PO DAILY PRN, (Reported) Patient Home Medication List Home Medication List Reviewed: Yes Review of Systems Constitutional: no symptoms reported Respiratory: no symptoms reported Cardiovascular: no symptoms reported Gastrointestinal: No abdominal pain, No constipation, No diarrhea, No loss of appetite, No melena, No nausea, No vomiting Genitourinary: No decreased output, No dysuria, No frequency, No hematuria, No pain Musculoskeletal: see HPI, back pain Skin: no symptoms reported Psychiatric/Neurological: No Symptoms Reported All Other Systems Reviewed Negative Unless Noted: Yes (Negative excepted noted.) Past Dknlrdr-Trlxau-Qsrldz Hx Past Med/Social Hx: Reviewed Nursing Past Med/Soc Hx Patient Social History Alcohol Use: Occasionally Uses Recreational Drug Use: No Recent Foreign Travel: No Contact w/Someone Who Travel: No Recent Infectious Disease Expo: No Recent Hopitalizations: No Physical Abuse: No Sexual Abuse: No Mistreated: No Fear: No Immunizations Up To Date Date of Influenza Vaccine: May 20, 2011 Seasonal Allergies Seasonal Allergies: No Past Medical History Respiratory: No Cardiac: No Neurological: No Reproductive Disorders: No Genitourinary: No Gastrointestinal: No Musculoskeletal: Yes (FIBROMYALGIA) Endocrine: Yes HEENT: No Cancer: No Psychosocial: Yes Anxiety, Depression Integumentary: No Blood Disorders: No Family Medical History Reviewed Nursing Family Hx No Pertinent Family Hx Physical Exam Vital Signs Vital Signs - First Documented 01/04/19 16:02 Temp 97.6 Pulse 61 Resp 18 B/P (MAP) 141/60 (87) Pulse Ox 100 O2 Delivery Room Air Capillary Refill : Less Than 3 Seconds Height, Weight, BMI Height: 4'8.00" Weight: 145lbs. oz. 65.422981qb; BMI Method:Stated General Appearance: No Apparent Distress, WD/WN HEENT: PERRL/EOMI, Pharynx Normal Neck: Full Range of Motion, Normal Inspection, Non Tender, Supple Cardiovascular: Regular Rate, Rhythm, No Edema, No Murmur, Normal Peripheral Pulses Respiratory: Lungs Clear, Normal Breath Sounds, No Accessory Muscle Use, No Respiratory Distress Peripheral Pulses: 2+ Dorsalis Pedis (R), 2+ Left Dors-Pedis (L), 2+ Radial Pulses (R), 2+ Radial Pulses (L) Gastrointestinal: Normal Bowel Sounds, No Organomegaly, Non Tender, Soft; No Distended Back: Normal Inspection, No Vertebral Tenderness; No Decreased Range of Motion; Muscle Spasm (lumbar muscle spasm with tenderness (left greater than right)) Extremity: Normal Capillary Refill, Normal Inspection, Normal Range of Motion, Other (left buttock tender to palpation.) Neurologic/Psychiatric: Alert, Oriented x3, No Motor/Sensory Deficits, Normal Mood/Affect Skin: Normal Color, Warm/Dry Progress/Results/Core Measures Results/Orders My Orders Orders - MADI GABRIEL Hydrocodone/Apap 5/325 Tablet (Lortab 5 (01/04/19 18:00) Orphenadrine Injection (Norflex Injectio (01/04/19 17:46) Prednisone Tablet (Deltasone Tablet) (01/04/19 18:00) Cyclobenzaprine Tablet (Flexeril Tablet) (01/04/19 17:59) Cyclobenzaprine Tablet (Flexeril Tablet) (01/04/19 17:59) Medications Given in ED Current Medications Medications Dose Ordered Sig/Mulu Route Start Time Stop Time Status Last Admin Dose Admin Acetaminophen/ Hydrocodone Bitart 1 tab ONCE ONCE PO 01/04/19 18:00 01/04/19 18:01 DC 01/04/19 18:03 1 TAB Prednisone 40 mg ONCE ONCE PO 01/04/19 18:00 01/04/19 18:01 DC 01/04/19 18:03 40 MG Vital Signs/I&O 01/04/19 01/04/19 16:02 18:32 Temp 97.6 97.6 Pulse 61 77 Resp 18 18 B/P (MAP) 141/60 (87) 141/76 (97) Pulse Ox 100 99 O2 Delivery Room Air Blood Pressure Mean: 87 Departure Communication (Admissions) Patient seen and evaluated. Patient given 1 dose of Flexeril, prednisone, and Lortab. Plan for discharge to home. Impression Primary Impression: Lumbar radiculopathy Disposition: HOME, SELF-CARE Condition: Improved Departure-Patient Inst. Decision time for Depature: 17:55 Referrals: NO,LOCAL PHYSICIAN (PCP/Family) Primary Care Physician Patient Instructions: Radiculopathy Add. Discharge Instructions: All discharge instructions reviewed with patient and/or family. Voiced understanding. Medications as instructed. Tylenol extra strength ov [id number] as directed for pain. Aleve ggmz-pii-[id number] twice daily as directed for pain. Ice packs or heating pads as needed. Avoid heavy lifting, pushing, pulling, twisting, bending, or climbing for 5-7 days. Increase activity as tolerated. Follow-up with your primary care provider for recheck as an outpatient this week. Call for appointment time Sunday. Return to the emergency department for worsened symptoms, numbness, weakness of the lower extremities, genital numbness, bowel incontinence, or bladder incontinence, or any other concerns. Scripts Orphenadrine Citrate (Orphenadrine Citrate) 100 Mg Tablet.er 100 MG PO BID PRN for SPASMS, #14 TAB 0 Refills Prov: MADI GABRIEL 01/04/19 Prednisone (Prednisone) 20 Mg Tab 40 MG PO DAILY, #8 TAB 0 Refills Prov: MADI GABRIEL 01/04/19 Work/School Note: Work Release Form Date Seen in the Emergency Department: January 04, 2019 Return to Work: January 05, 2019 MADI GABRIEL January 04, 2019 16:30
[2019-01-04] MEDS ORDERED: ORPHENADRINE 60 MG/2 ML (NORFLEX) AMP IM STA (17:46)
[2019-01-04] MEDS ORDERED: ORPH100T PO (17:57)
[2019-01-04] MEDS ORDERED: PRD20T PO (17:57)
[2019-01-04] MEDS ORDERED: CYCLOBENZAPRINE 10 MG (FLEXERIL) TAB PO STA (17:59)
[2019-01-04] MEDS ORDERED: CYCLOBENZAPRINE 10 MG (FLEXERIL) TAB ONE (17:59)
[2019-01-04] MEDS ORDERED: predniSONE 20 MG TAB PO ONE (18:00)
[2019-01-04] MEDS ORDERED: HYDROcodone/APAP 5 MG/325 MG (LORTAB) TAB PO ONE (18:00)
[2019-01-04 18:32] VITALS: BP 141/76
== END 2019-01-04 18:33 | disposition home or self-care (01) ==
LOC: EDUNIT# 15:57 → ER 15:59
DX: M54.16 Radiculopathy, lumbar region (principal); M79.7 Fibromyalgia; F41.9 Anxiety disorder, unspecified; F32.9 Major depressive disorder, single episode, unspecified; Z88.8 Allergy status to other drugs, medicaments and biological substances; Z79.52 Long term (current) use of systemic steroids
CPT/HCPCS: 99283

== ENCOUNTER → 2021-05-05 | Outpatient (CLI) | payer OTHER ==
[~2021-05-05] MED LIST changes: +ORPH100T PO; +PRD20T PO
--- NOTE | 2021-05-05 09:39 | Diagnostic Imaging Report ---
Indication: Routine screening. Comparison is made with prior mammogram 12/01/2010 and 11/20/2008. 2-D and 3-D bilateral screening mammography was performed with CAD. Scattered fibroglandular densities are identified bilaterally. A marker clip in the left breast is again noted. There are benign appearing nodules in the left breast. No spiculated mass or malignant appearing microcalcifications are seen. Axillae are unremarkable. IMPRESSION: BI-RADS Category 2 No mammographic features suspicious for malignancy are identified. ACR BI-RADS Category 2: Benign findings. Result letter will be mailed to the patient. Note: At least 10% of breast cancer is not imaged by mammography. Dictated by: Dictated on workstation # [id number]
--- NOTE | 2021-05-05 14:09 | Diagnostic Imaging Report ---
PROCEDURE: US Thyroid. TECHNIQUE: Multiple real-time grayscale images were obtained of the thyroid in various projections. INDICATION: Thyroid nodule. No prior studies are available for comparison. Right lobe of thyroid measures 5.0 x 2.0 x 1.6 cm and the left lobe measures 4.1 x 2.2 x 1.8 cm. Isthmus is 4 mm in thickness. There is a circumscribed mixed density solid nodule in the lower pole left lobe of the thyroid measuring 2.1 x 1.7 x 1.7 cm. No microcalcifications are seen. There is also a nodule in the left para-midline portion of the isthmus measuring 1.5 x 0.9 x 1.2 cm. A right lobe demonstrates some parenchymal heterogeneity. There is a 5 mm nodule in the medial mid right lobe near the isthmus. There is also a nodule more laterally located in the mid right lobe measuring 1.6 x 1.0 x 1.0 cm. No microcalcifications are seen. IMPRESSION: Bilateral thyroid lobe nodularity. Largest nodule is lower pole left lobe. Tissue sampling is recommended. This would be amenable to ultrasound-guided fine-needle aspiration. Dictated by: Dictated on workstation # [id number]
== END ==
LOC: RAD 07:45
PROVIDERS: ATTEND Family Medicine
DX: Z12.31 Encounter for screening mammogram for malignant neoplasm of breast (principal); E04.2 Nontoxic multinodular goiter
CPT/HCPCS: 76536; 77063; 77067

== ENCOUNTER → 2021-05-16 | Outpatient (CLI) | payer OTHER ==
[~2021-05-16] VITALS: Ht 142.2 cm; Wt 63.2 kg
[~2021-05-16] MED LIST changes: +LIDOCAINE 1% INJ 20 ML 20 ML VIAL INJ ONE
--- NOTE | 2021-05-16 16:51 | Diagnostic Imaging Report ---
INDICATION: Left thyroid nodule. Patient presents for ultrasound guided fine needle aspiration and biopsy. DETAILS OF THE PROCEDURE: The patient was brought to the procedure room and placed on the table in the supine position. Ultrasound imaging of the left neck was performed to evaluate for an appropriate entry site. The left neck was then prepped and draped in the usual sterile fashion. A small amount of 1% lidocaine was utilized for local anesthesia. A total of 4 passes was made into the dominant solid nodule in the left lobe of the thyroid utilizing 25-gauge needles and fine-needle aspiration technique. A single pass was made with a Rotex needle and a Rotex biopsy was performed. Hemostasis was obtained using manual compression. The patient tolerated the procedure well and left the Department in stable condition. IMPRESSION: Successful ultrasound guided fine needle aspiration and Rotex biopsy of a dominant left lobe thyroid nodule. Pathology results are currently pending. Dictated by: Dictated on workstation # [id number]
== END ==
LOC: RAD 14:00
PROVIDERS: ATTEND Family Medicine
DX: E04.1 Nontoxic single thyroid nodule (principal)
CPT/HCPCS: 10005

== ENCOUNTER → 2022-05-09 | Outpatient (CLI) | payer OTHER ==
[~2022-05-09] MED LIST changes: -LIDOCAINE 1% INJ 20 ML 20 ML VIAL INJ ONE
--- NOTE | 2022-05-09 12:33 | Diagnostic Imaging Report ---
INDICATION: Routine screening. COMPARISON: Prior mammogram 05/05/2021. TECHNIQUE: 2D and 3D bilateral screening mammography was performed with CAD. FINDINGS: Scattered fibroglandular densities are identified bilaterally. Nodular densities in the left breast are stable. A biopsy clip in the left breast is again noted. No spiculated mass or malignant-appearing microcalcifications are seen. The axillae are unremarkable. IMPRESSION: No mammographic features suspicious for malignancy are identified. ACR BI-RADS Category 2: Benign findings. Result letter will be mailed to the patient. Note: At least 10% of breast cancer is not imaged by mammography. Dictated by: Dictated on workstation # [id number]
== END ==
LOC: RAD 07:30
PROVIDERS: ATTEND Family Medicine
DX: Z12.31 Encounter for screening mammogram for malignant neoplasm of breast (principal)
CPT/HCPCS: 77063; 77067